=== PATIENT | male | born 1965 | race Hispanic/Latino ===

== ENCOUNTER 2017-11-09 02:44 | Emergency (ER) | payer SELFPAY ==
[2017-11-09] MEDS ORDERED: LIDOCAINE 2%-EPI 1:200,000 20 ML VIAL IJ ONE (02:47)
[2017-11-09] MEDS ORDERED: LIDOCAINE HCL 2% 20ML ONE (02:50)
== END 2017-11-09 04:18 | disposition home or self-care (01) ==
LOC: EDH 02:44
DX: T16.1XXA Foreign body in right ear, initial encounter (principal); I10 Essential (primary) hypertension; E78.5 Hyperlipidemia, unspecified; X58.XXXA Exposure to other specified factors, initial encounter; Y93.89 Activity, other specified; Y92.89 Other specified places as the place of occurrence of the external cause; Y99.8 Other external cause status
CPT/HCPCS: 69200; 99284; J3490 ×2

== ENCOUNTER 2018-09-02 16:56 | Inpatient (IN) | payer OTHER ==
[~2018-09-02] VITALS: Ht 157.5 cm; Wt 108.4 kg
[2018-09-02 17:29] LABS: BASOPHILS % (AUTO) 0.3 % (0.0-5.0); HEMATOCRIT 46.3 % (42-54); LYMPHOCYTES % (AUTO) 2.1 % (21.0-51.0); MEAN CORPUSCULAR HGB CONC 32.8 g/dL (32.0-36.0); MEAN CORPUSCULAR VOLUME 82.2 fL (79-99); MONOCYTES % (AUTO) 5.7 % (3.0-13.0); NEUTROPHILS % (AUTO) 91.9 % (40.0-77.0); NUCLEATED RED BLOOD CELLS 0.1 % (0.0-0.19); PLATELET COUNT (AUTO) 283 K/uL (130-400); RED BLOOD CELL COUNT(AUTO) 5.62 MIL/uL (4.50-6.20); RED CELL DISTRIBUTION WIDTH 20.1 % (11.0-15.5); WHITE BLOOD COUNT (AUTO) 22.5 K/uL (4.8-10.8)
[2018-09-02 17:46] LABS: INR 1.23 (0.85-1.15); PARTIAL THROMBOPLASTIN TIME 42.5 SEC (26.3-35.5); PROTHROMBIN TIME 12.9 SEC (9.6-11.6)
[2018-09-02 17:47] LABS: POTASSIUM 3.6 mmol/L (3.5-5.1)
[2018-09-02] MEDS ORDERED: CEFTRIAXONE SODIUM 1 GM ONE (17:55)
[2018-09-02] MEDS ORDERED: SODIUM CHLORIDE 0.9% 1000ML 2,000 ML IV ONE (17:55)
[2018-09-02] MEDS ORDERED: SODIUM CHLORIDE 0.9% 50 ML IV ONE (17:56)
[2018-09-02] MEDS ORDERED: ACETAMINOPHEN 325 MG TAB ONE (17:56)
[2018-09-02 18:06] LABS: ALBUMIN 2.9 g/dL (3.5-5.0); BILIRUBIN,TOTAL 6.4 mg/dL (0.2-1.0); TROPONIN I 0.14 ng/mL (0.00-0.06)
[2018-09-02] MEDS ORDERED: IPRATROPIUM/ALBUTEROL SULFATE 3 ML SOLUTION IH ONE (18:49)
[2018-09-02] MEDS ORDERED: SODIUM CHLORIDE 0.9% 1000ML 1,000 ML IV ONE (19:17)
[2018-09-02] MEDS ORDERED: VANCOMYCIN PROTOCOL PER PHARMACY IV SCH (20:00)
[2018-09-02] MEDS ORDERED: VANCOMYCIN 1GM+NS 250ML 250 ML IV SCH (20:00)
[2018-09-02 20:32] LABS: APPEARANCE,URINE Cloudy (CLEAR); BILIRUBIN,URINE Large (NEGATIVE); COLOR,URINE Orange (YELLOW); GLUCOSE, URINE (UA) Negative (NEGATIVE); KETONES,URINE Negative (NEGATIVE); LEUKOCYTE ESTERASE ,URINE Small (NEGATIVE); NITRATE,URINE Positive (NEGATIVE); OCCULT BLOOD,URINE Moderate (NEGATIVE); PROTEIN,URINE POS 2+ (NEGATIVE)
[2018-09-02 20:39] LABS: BACTERIA,URINE Moderate /HPF (None Seen); SQUAMOUS EPITHELIAL CELL,UR Moderate /HPF (0-2)
[2018-09-02 20:40] LABS: AMORPHOUS SEDIMENT,UR Few /LPF (None Seen)
[2018-09-02 20:41] LABS: COARSE GRANULAR CASTS,URINE 0-2 /LPF (None Seen)
[2018-09-02] MEDS: ZOSYN 3.375GM+NS 50ML 50 ML IV SCH (21:00)
[2018-09-02] MEDS ORDERED: SODIUM CHLORIDE 0.9% 500ML 500 ML IV ONE (22:43)
[2018-09-02] MEDS ORDERED: ZOSYN 3.375GM+NS 50ML 50 ML IV ONE (22:43)
[2018-09-03] MEDS ORDERED: SODIUM CHLORIDE 0.9% 1000ML 1,000 ML IV ONE (01:05)
[2018-09-03] MEDS ORDERED: VANCOMYCIN 1GM+NS 250ML 250 ML IV ONE (01:06)
[2018-09-03 01:43] LABS: TROPONIN I 0.15 ng/mL (0.00-0.06)
[2018-09-03] MEDS: ZOSYN 3.375GM+NS 50ML 50 ML IV SCH ×3 (05:00→20:53)
[2018-09-03 06:00] LABS: CREATININE 2.1 mg/dL (0.5-1.5); MAGNESIUM 1.6 mg/dL (1.80-2.40); POTASSIUM 3.9 mmol/L (3.5-5.1)
[2018-09-03 06:01] LABS: BASOPHILS % (AUTO) 0.2 % (0.0-5.0); LYMPHOCYTES % (AUTO) 5.1 % (21.0-51.0); MEAN CORPUSCULAR HEMOGLOBIN 26.5 pg (27.0-33.0); MEAN CORPUSCULAR HGB CONC 31.9 g/dL (32.0-36.0); MONOCYTES % (AUTO) 6.4 % (3.0-13.0); NEUTROPHILS % (AUTO) 88.3 % (40.0-77.0); NUCLEATED RED BLOOD CELLS 0.1 % (0.0-0.19); PLATELET COUNT (AUTO) 188 K/uL (130-400); RED BLOOD CELL COUNT(AUTO) 5.18 MIL/uL (4.50-6.20); RED CELL DISTRIBUTION WIDTH 20.1 % (11.0-15.5); WHITE BLOOD COUNT (AUTO) 15.7 K/uL (4.8-10.8)
[2018-09-03] MEDS ORDERED: SODIUM CHLORIDE 0.9% 50 ML IV ONE (06:57)
[2018-09-03] MEDS ORDERED: ZOSYN 3.375GM+NS 50ML 50 ML IV ONE (06:57)
[2018-09-03] MEDS ORDERED: IPRATROPIUM/ALBUTEROL SULFATE 3 ML SOLUTION IH ONE (07:02)
[2018-09-03] MEDS: IPRATROPIUM/ALBUTEROL SULFATE 3 ML SOLUTION IH PRN ×2 (07:03→13:29)
[2018-09-03 07:18] LABS: TROPONIN I 0.12 ng/mL (0.00-0.06)
[2018-09-03] MEDS ORDERED: HYDR25TA PO (07:59)
[2018-09-03] MEDS ORDERED: ENAL20TA PO (07:59)
[2018-09-03] MEDS ORDERED: ASPI-555 PO (07:59)
[2018-09-03 13:19] VITALS: BP 101/57
[2018-09-03] MEDS ORDERED: COMPOUND IV REFRIGERATED 1 EACH IVSOLN MISC PRN (14:00)
[2018-09-03] MEDS ORDERED: VANCOMYCIN 1.5 GM in SODIUM CHLORIDE 0.9% 250 ML IV SCH (14:00)
[2018-09-03] MEDS: LEVOFLOXACIN 750 MG/D5W 150 ML 150 ML IV SCH (15:22)
[2018-09-03 16:56] VITALS: BP 107/76
[2018-09-03 19:44] VITALS: BP 102/73
[2018-09-03] MEDS: SODIUM CHLORIDE 0.9% 1000ML 1,000 ML IV SCH (20:53)
[2018-09-03 23:55] VITALS: BP 110/70
[2018-09-04 04:03] VITALS: BP 123/83
[2018-09-04] MEDS: ZOSYN 3.375GM+NS 50ML 50 ML IV SCH ×3 (04:21→20:17)
[2018-09-04 04:22] LABS: BASOPHILS % (AUTO) 0.3 % (0.0-5.0); EOSINOPHILS % (AUTO) 0.4 % (0.0-8.0); HEMATOCRIT 39.6 % (42-54); LYMPHOCYTES % (AUTO) 5.8 % (21.0-51.0); MEAN CORPUSCULAR HEMOGLOBIN 27.5 pg (27.0-33.0); MEAN CORPUSCULAR HGB CONC 33.5 g/dL (32.0-36.0); MEAN CORPUSCULAR VOLUME 82.2 fL (79-99); MONOCYTES % (AUTO) 6.9 % (3.0-13.0); NEUTROPHILS % (AUTO) 86.6 % (40.0-77.0); PLATELET COUNT (AUTO) 196 K/uL (130-400); RED BLOOD CELL COUNT(AUTO) 4.81 MIL/uL (4.50-6.20); RED CELL DISTRIBUTION WIDTH 19.2 % (11.0-15.5); WHITE BLOOD COUNT (AUTO) 10.5 K/uL (4.8-10.8)
[2018-09-04 04:24] LABS: ALBUMIN 2.3 g/dL (3.5-5.0); BILIRUBIN,TOTAL 3.5 mg/dL (0.2-1.0); CREATININE 2.4 mg/dL (0.5-1.5); MAGNESIUM 1.7 mg/dL (1.80-2.40); PHOSPHORUS 3.9 mg/dL (2.5-4.9); POTASSIUM 3.5 mmol/L (3.5-5.1); TOTAL PROTEIN, SERUM 6.9 g/dL (6.0-8.3)
[2018-09-04 04:43] LABS: INR 1.18 (0.85-1.15); PARTIAL THROMBOPLASTIN TIME 43.3 SEC (26.3-35.5); PROTHROMBIN TIME 12.3 SEC (9.6-11.6)
[2018-09-04 07:34] VITALS: BP 93/74
[2018-09-04 07:38] LABS: ABG BASE EXCESS -3.3 mmol/L (-2.0-3.0); ABG HCO3 19.9 mmol/L (21.0-28.0); ABG OXYGEN SATURATION 95.5 % (95.0-99.0); ABG PCO2 31 mmHg (35-48)
[2018-09-04] MEDS: SODIUM CHLORIDE 0.9% 1000ML 1,000 ML IV SCH ×2 (09:16→12:00)
[2018-09-04 12:17] VITALS: BP 99/74
[2018-09-04 16:27] VITALS: BP 108/83
[2018-09-04] MEDS ORDERED: POTASSIUM CHLORIDE 10% ELIXIR 20 MEQ/15 ML UDCUP PO PRN (19:15)
[2018-09-04 19:55] VITALS: BP 134/72
[2018-09-04] MEDS: IPRATROPIUM/ALBUTEROL SULFATE 3 ML SOLUTION IH PRN (22:34)
[2018-09-04 23:41] VITALS: BP 116/81
[2018-09-05] MEDS: SODIUM CHLORIDE 0.9% 1000ML 1,000 ML IV SCH ×3 (01:20→13:50)
[2018-09-05 04:00] VITALS: BP 138/73
[2018-09-05] MEDS: POTASSIUM CHLORIDE 20 MEQ ERTAB PO PRN ×2 (04:41→06:29)
[2018-09-05] MEDS: ZOSYN 3.375GM+NS 50ML 50 ML IV SCH ×4 (04:42→20:18)
[2018-09-05] MEDS ORDERED: SODIUM CHLORIDE 3% FOR INHALATION 4 ML/AMP VIAL.NEB IH ONE (05:52)
[2018-09-05 07:36] VITALS: BP 105/98
[2018-09-05 11:36] VITALS: BP 108/79
[2018-09-05] MEDS: LEVOFLOXACIN 750 MG/D5W 150 ML 150 ML IV SCH (13:14)
[2018-09-05 16:31] VITALS: BP 109/79
[2018-09-05] MEDS: IPRATROPIUM/ALBUTEROL SULFATE 3 ML SOLUTION IH PRN (19:16)
[2018-09-05 19:36] VITALS: BP 97/67
[2018-09-05 23:49] VITALS: BP 120/85
[2018-09-06] VITALS (7 sets, daily range): BP systolic 96–128; BP diastolic 70–77
[2018-09-06] MEDS: SODIUM CHLORIDE 0.9% 1000ML 1,000 ML IV SCH (04:00)
[2018-09-06] MEDS: ZOSYN 3.375GM+NS 50ML 50 ML IV SCH ×3 (05:24→21:00)
[2018-09-06 06:21] LABS: HEMATOCRIT 41.6 % (42-54); MEAN CORPUSCULAR HEMOGLOBIN 27.4 pg (27.0-33.0); MEAN CORPUSCULAR HGB CONC 32.7 g/dL (32.0-36.0); MEAN CORPUSCULAR VOLUME 83.7 fL (79-99); PLATELET COUNT (AUTO) 205 K/uL (130-400); RED BLOOD CELL COUNT(AUTO) 4.97 MIL/uL (4.50-6.20); RED CELL DISTRIBUTION WIDTH 19.4 % (11.0-15.5); WHITE BLOOD COUNT (AUTO) 8.6 K/uL (4.8-10.8)
[2018-09-06 06:27] LABS: CREATININE 1.6 mg/dL (0.5-1.5); POTASSIUM 3.5 mmol/L (3.5-5.1)
[2018-09-06] MEDS ORDERED: FUROSEMIDE 10 MG/ML 2ML VIAL IV SCH (10:45)
[2018-09-06] MEDS: LISINOPRIL 2.5 MG TABLET PO SCH (21:00)
[2018-09-06] MEDS: CARVEDILOL 3.125 MG TABLET PO SCH (21:00)
[2018-09-07 04:08] LABS: HEMATOCRIT 43.2 % (42-54); MEAN CORPUSCULAR HEMOGLOBIN 26.3 pg (27.0-33.0); MEAN CORPUSCULAR HGB CONC 31.7 g/dL (32.0-36.0); MEAN CORPUSCULAR VOLUME 83.1 fL (79-99); NUCLEATED RED BLOOD CELLS 0.4 % (0.0-0.19); PLATELET COUNT (AUTO) 224 K/uL (130-400); RED CELL DISTRIBUTION WIDTH 19.6 % (11.0-15.5); WHITE BLOOD COUNT (AUTO) 11.7 K/uL (4.8-10.8)
[2018-09-07 04:16] LABS: HEMOGLOBIN A1C 6.9 % (4.0-6.0)
[2018-09-07 04:19] VITALS: BP 110/73
[2018-09-07 04:20] LABS: ALBUMIN 2.4 g/dL (3.5-5.0); BILIRUBIN,TOTAL 2.4 mg/dL (0.2-1.0); CREATININE 1.5 mg/dL (0.5-1.5); MAGNESIUM 1.7 mg/dL (1.80-2.40); PHOSPHORUS 2.8 mg/dL (2.5-4.9); POTASSIUM 3.6 mmol/L (3.5-5.1); TOTAL PROTEIN, SERUM 7.5 g/dL (6.0-8.3); URIC ACID 4.8 mg/dL (2.6-7.2)
[2018-09-07] MEDS: ZOSYN 3.375GM+NS 50ML 50 ML IV SCH (05:32)
[2018-09-07] MEDS ORDERED: FAMOTIDINE 20MG TAB 20 MG TAB ONE (07:05)
[2018-09-07] MEDS: FOLIC ACID/VITAMIN B COMP W-C 1 MG CAPSULE PO SCH (07:06)
[2018-09-07] MEDS: ASPIRIN 81 MG EC TAB PO SCH (07:06)
[2018-09-07] MEDS: CARVEDILOL 3.125 MG TABLET PO SCH ×2 (07:07→20:59)
[2018-09-07 07:11] LABS: APPEARANCE,URINE Clear (CLEAR); BILIRUBIN,URINE Small (NEGATIVE); COLOR,URINE Dark Yellow (YELLOW); GLUCOSE, URINE (UA) Negative (NEGATIVE); KETONES,URINE Negative (NEGATIVE); LEUKOCYTE ESTERASE ,URINE Small (NEGATIVE); NITRATE,URINE Negative (NEGATIVE); OCCULT BLOOD,URINE Negative (NEGATIVE); PROTEIN,URINE POS 1+ (NEGATIVE)
[2018-09-07 07:50] VITALS: BP 97/73
[2018-09-07 07:59] LABS: BACTERIA,URINE Rare /HPF (None Seen); RBC,URINE 0-1 /HPF (0-1); SQUAMOUS EPITHELIAL CELL,UR Rare /HPF (0-2); WBC,URINE 0-1 /HPF (0-1)
[2018-09-07] MEDS ORDERED: FUROSEMIDE 20 MG TABLET PO SCH (09:00)
[2018-09-07] MEDS ORDERED: CEFTRIAXONE SODIUM 2 GM VIAL IVP SCH ×2 (10:00→12:15)
[2018-09-07] MEDS: REGADENOSON 0.4 MG/5 ML PF SYG IVP SCH ×2 (11:30→12:38)
[2018-09-07] MEDS: LEVOFLOXACIN 750 MG/D5W 150 ML 150 ML IV SCH (14:05)
[2018-09-07] MEDS: MAGNESIUM 2GM PREMIX 50ML 50 ML IV SCH (14:06)
[2018-09-07 14:19] VITALS: BP 103/71
[2018-09-07 16:00] VITALS: BP 92/53
[2018-09-07 19:46] VITALS: BP 96/44
[2018-09-07] MEDS: POTASSIUM CHLORIDE 20 MEQ ERTAB PO PRN (21:00)
[2018-09-07] MEDS: LISINOPRIL 2.5 MG TABLET PO SCH (23:28)
[2018-09-08] VITALS (7 sets, daily range): BP systolic 94–127; BP diastolic 59–76
[2018-09-08 03:53] LABS: HEMATOCRIT 40.9 % (42-54); MEAN CORPUSCULAR HEMOGLOBIN 26.9 pg (27.0-33.0); MEAN CORPUSCULAR HGB CONC 32.8 g/dL (32.0-36.0); MEAN CORPUSCULAR VOLUME 82.1 fL (79-99); NUCLEATED RED BLOOD CELLS 0.4 % (0.0-0.19); PLATELET COUNT (AUTO) 265 K/uL (130-400); RED BLOOD CELL COUNT(AUTO) 4.98 MIL/uL (4.50-6.20); RED CELL DISTRIBUTION WIDTH 19.6 % (11.0-15.5); WHITE BLOOD COUNT (AUTO) 11.5 K/uL (4.8-10.8)
[2018-09-08 04:07] LABS: CREATININE 1.3 mg/dL (0.5-1.5); MAGNESIUM 1.7 mg/dL (1.80-2.40)
[2018-09-08] MEDS: MAGNESIUM 2GM PREMIX 50ML 50 ML IV SCH ×2 (05:30→14:16)
[2018-09-08] MEDS ORDERED: MAGNESIUM 2GM PREMIX 50ML 50 ML IV SCH (06:45)
[2018-09-08] MEDS: ASPIRIN 81 MG EC TAB PO SCH (11:07)
[2018-09-08] MEDS: FOLIC ACID/VITAMIN B COMP W-C 1 MG CAPSULE PO SCH (11:08)
[2018-09-08] MEDS: CARVEDILOL 3.125 MG TABLET PO SCH ×2 (11:08→20:20)
[2018-09-08] MEDS: ISOSORBIDE MONO 30MG TAB SR PO SCH (11:09)
[2018-09-08] MEDS: FUROSEMIDE 10 MG/ML 4ML VIAL IV SCH (11:09)
[2018-09-08] MEDS ORDERED: CEFTRIAXONE SODIUM 2 GM VIAL IVP SCH (14:45)
[2018-09-08] MEDS: LISINOPRIL 2.5 MG TABLET PO SCH (20:21)
[2018-09-08] MEDS ORDERED: ATORVASTATIN CALCIUM 20 MG TABLET PO SCH (21:00)
[2018-09-09] VITALS (7 sets, daily range): BP systolic 81–101; BP diastolic 34–66
[2018-09-09 03:44] LABS: BASOPHILS % (AUTO) 0.8 % (0.0-5.0); EOSINOPHILS % (AUTO) 2.5 % (0.0-8.0); HEMATOCRIT 37.8 % (42-54); LYMPHOCYTES % (AUTO) 10.5 % (21.0-51.0); MEAN CORPUSCULAR HEMOGLOBIN 27.3 pg (27.0-33.0); MEAN CORPUSCULAR HGB CONC 32.8 g/dL (32.0-36.0); MEAN CORPUSCULAR VOLUME 83.4 fL (79-99); MONOCYTES % (AUTO) 13.3 % (3.0-13.0); NEUTROPHILS % (AUTO) 72.9 % (40.0-77.0); NUCLEATED RED BLOOD CELLS 0.2 % (0.0-0.19); PLATELET COUNT (AUTO) 272 K/uL (130-400); RED BLOOD CELL COUNT(AUTO) 4.53 MIL/uL (4.50-6.20); RED CELL DISTRIBUTION WIDTH 20.5 % (11.0-15.5); WHITE BLOOD COUNT (AUTO) 8.9 K/uL (4.8-10.8)
[2018-09-09 04:01] LABS: B-TYPE NATRIURETIC PEPTIDE 704 pg/mL (0-100)
[2018-09-09 04:04] LABS: CREATININE 1.6 mg/dL (0.5-1.5); POTASSIUM 3.6 mmol/L (3.5-5.1)
[2018-09-09] MEDS: POTASSIUM CHLORIDE 20 MEQ ERTAB PO PRN ×2 (04:44→06:22)
[2018-09-09] MEDS: CARVEDILOL 3.125 MG TABLET PO SCH ×2 (08:30→21:26)
[2018-09-09] MEDS: FOLIC ACID/VITAMIN B COMP W-C 1 MG CAPSULE PO SCH (08:30)
[2018-09-09] MEDS: ASPIRIN 81 MG EC TAB PO SCH (08:30)
[2018-09-09] MEDS: FUROSEMIDE 40 MG TABLET PO SCH (08:30)
[2018-09-09] MEDS: ISOSORBIDE MONO 30MG TAB SR PO SCH (08:30)
[2018-09-09] MEDS: FUROSEMIDE 10 MG/ML 4ML VIAL IV SCH (08:31)
[2018-09-09] MEDS ORDERED: CARV3.1262 PO (09:16)
[2018-09-09] MEDS ORDERED: Isosorbide Mono 30MG Tab Sr PO (09:16)
[2018-09-09] MEDS ORDERED: LISI2.5T2 PO (09:16)
[2018-09-09] MEDS ORDERED: FURO40TA7 PO (09:16)
[2018-09-09 12:22] LABS: INR 1.15 (0.85-1.15); PARTIAL THROMBOPLASTIN TIME 35.2 SEC (26.3-35.5)
[2018-09-09] MEDS: LEVOFLOXACIN 750 MG/D5W 150 ML 150 ML IV SCH (14:00)
[2018-09-09] MEDS ORDERED: LEVOFLOXACIN 750 MG TABLET PO SCH (15:37)
[2018-09-09 18:19] LABS: APPEARANCE BODY FLUID SLIGHTLY CLOUDY (CLEAR); COLOR,BODY FLUID ORANGE (LT YELLOW); SPECIMENTYPE,BODY FLUID THORACENTESIS; TOTAL VOLUME,BODY FLUID 740 mL
[2018-09-09 18:20] LABS: BODY FLUID RBC 6543 /cu. mm.; BODY FLUID WBC 882 /cu. mm.
[2018-09-09 18:29] LABS: BF LYMPHOCYTE 23 %; BF MONOCYTE 14 %
[2018-09-09] MEDS: LISINOPRIL 2.5 MG TABLET PO SCH (21:25)
[2018-09-10 03:00] VITALS: BP 112/71
[2018-09-10 08:01] VITALS: BP 123/92
[2018-09-10] MEDS: ASPIRIN 81 MG EC TAB PO SCH (09:09)
[2018-09-10] MEDS: ISOSORBIDE MONO 30MG TAB SR PO SCH (09:09)
[2018-09-10] MEDS: POTASSIUM CHLORIDE 20 MEQ ERTAB PO PRN (09:09)
[2018-09-10] MEDS: FOLIC ACID/VITAMIN B COMP W-C 1 MG CAPSULE PO SCH (09:09)
[2018-09-10] MEDS: CARVEDILOL 3.125 MG TABLET PO SCH (09:10)
[2018-09-10] MEDS: FUROSEMIDE 40 MG TABLET PO SCH (09:10)
[2018-09-10] MEDS: FUROSEMIDE 10 MG/ML 4ML VIAL IV SCH (09:30)
[2018-09-10 11:08] VITALS: BP 142/90
[2018-09-10] MEDS ORDERED: LEVO750T46 PO (13:32)
== END 2018-09-10 14:30 | disposition home or self-care (01) | DRG 871 ==
LOC: EDH 16:56 → EDHIP 16:57 → 4CH 09-03 12:37 → 2AH 09-03 19:05
PROVIDERS: ADMIT Family Medicine; ATTEND Family Medicine
PROC: 3E02340 Introduction of Influenza Vaccine into Muscle, Percutaneous Approach (ICD-10-PCS; 2018-09-03)
PROC: 0W9930Z Drainage of Right Pleural Cavity with Drainage Device, Percutaneous Approach (ICD-10-PCS; principal; 2018-09-09)
DX: A40.8 Other streptococcal sepsis (principal); J18.9 Pneumonia, unspecified organism; I21.4 Non-ST elevation (NSTEMI) myocardial infarction; I50.23 Acute on chronic systolic (congestive) heart failure; J96.01 Acute respiratory failure with hypoxia; J44.0 Chronic obstructive pulmonary disease with (acute) lower respiratory infection; N17.9 Acute kidney failure, unspecified; I13.0 Hypertensive heart and chronic kidney disease with heart failure and stage 1 through stage 4 chronic kidney disease, or unspecified chronic kidney disease; Z68.41 Body mass index [BMI] 40.0-44.9, adult; J90 Pleural effusion, not elsewhere classified; R65.20 Severe sepsis without septic shock; D64.9 Anemia, unspecified; E11.22 Type 2 diabetes mellitus with diabetic chronic kidney disease; E66.01 Morbid (severe) obesity due to excess calories; E78.5 Hyperlipidemia, unspecified; G47.33 Obstructive sleep apnea (adult) (pediatric); I25.10 Atherosclerotic heart disease of native coronary artery without angina pectoris; I25.5 Ischemic cardiomyopathy; I34.0 Nonrheumatic mitral (valve) insufficiency; I35.0 Nonrheumatic aortic (valve) stenosis; K74.60 Unspecified cirrhosis of liver; N18.3 Chronic kidney disease, stage 3 (moderate); I25.2 Old myocardial infarction; Z78.9 Other specified health status; Z79.82 Long term (current) use of aspirin; Z79.899 Other long term (current) drug therapy; Z87.01 Personal history of pneumonia (recurrent); Z87.442 Personal history of urinary calculi; Z83.3 Family history of diabetes mellitus; Z82.49 Family history of ischemic heart disease and other diseases of the circulatory system; Z80.9 Family history of malignant neoplasm, unspecified
CPT/HCPCS: 32555; 36415; 36600; 71045; 71046; 71250; 76770; 78452; 80048; 80053; 80061; 80339; 81001; 82140; 82550; 82803; 82945; 83036; 83605; 83615; 83735; 83874; 83880; 83970; 83986; 84100; 84157; 84484; 84550; 85025; 85027; 85610; 85730; 86480; 87040; 87071; 87077; 87088; 87103; 87116; 87186; 87205; 87206; 87804; 88108; 88305; 89051; 93005; 93017; 93306; 94640; 94664; 96374; A4218; A9500; G0378; J0696; J1940; J1956; J2543; J2785; J3370; J3475; J7030; J7040

== ENCOUNTER 2018-09-23 18:45 | Emergency (ER) | payer SELFPAY ==
[~2018-09-23 18:45] MED LIST: ASPI-555 PO; CARV3.1262 PO; FURO40TA7 PO; Isosorbide Mono 30MG Tab Sr PO; LEVO750T46 PO; LISI2.5T2 PO
[2018-09-23 21:13] LABS: BASOPHILS % (AUTO) 1.1 % (0.0-5.0); EOSINOPHILS % (AUTO) 3.3 % (0.0-8.0); HEMATOCRIT 39.9 % (42-54); LYMPHOCYTES % (AUTO) 9.9 % (21.0-51.0); MEAN CORPUSCULAR HEMOGLOBIN 27.8 pg (27.0-33.0); MEAN CORPUSCULAR HGB CONC 33.4 g/dL (32.0-36.0); MEAN CORPUSCULAR VOLUME 83.1 fL (79-99); MONOCYTES % (AUTO) 8.6 % (3.0-13.0); NEUTROPHILS % (AUTO) 77.1 % (40.0-77.0); NUCLEATED RED BLOOD CELLS 0.2 % (0.0-0.19); PLATELET COUNT (AUTO) 350 K/uL (130-400); RED CELL DISTRIBUTION WIDTH 20.4 % (11.0-15.5); WHITE BLOOD COUNT (AUTO) 8.8 K/uL (4.8-10.8)
[2018-09-23 21:47] LABS: CREATININE 1.2 mg/dL (0.5-1.5); POTASSIUM 3.6 mmol/L (3.5-5.1)
[2018-09-23 21:50] LABS: ALBUMIN 2.4 g/dL (3.5-5.0); BILIRUBIN,TOTAL 1.6 mg/dL (0.2-1.0); TOTAL PROTEIN, SERUM 7.6 g/dL (6.0-8.3)
[2018-09-23 21:55] LABS: INR 1.15 (0.85-1.15); PARTIAL THROMBOPLASTIN TIME 33.2 SEC (26.3-35.5)
[2018-09-23] MEDS ORDERED: LOPERAMIDE HCL 2 MG CAP PO ONE (22:52)
== END 2018-09-23 23:35 | disposition home or self-care (01) ==
LOC: EDH 18:45
DX: K52.9 Noninfective gastroenteritis and colitis, unspecified (principal); K62.5 Hemorrhage of anus and rectum; K74.60 Unspecified cirrhosis of liver; E78.5 Hyperlipidemia, unspecified; I11.0 Hypertensive heart disease with heart failure; I50.9 Heart failure, unspecified
CPT/HCPCS: 36415; 80053; 82270; 85025; 85610; 85730

== ENCOUNTER 2019-07-03 18:30 | Emergency (ER) | payer OTHER, SELFPAY ==
[2019-07-03 19:05] LABS: BASOPHILS % (AUTO) 0.5 % (0.0-5.0); EOSINOPHILS % (AUTO) 1.1 % (0.0-8.0); HEMATOCRIT 42.2 % (42-54); LYMPHOCYTES % (AUTO) 5.3 % (21.0-51.0); MEAN CORPUSCULAR HEMOGLOBIN 27.8 pg (27.0-33.0); MEAN CORPUSCULAR HGB CONC 32.8 g/dL (32.0-36.0); MEAN CORPUSCULAR VOLUME 84.9 fL (79-99); MONOCYTES % (AUTO) 9.3 % (3.0-13.0); NEUTROPHILS % (AUTO) 83.8 % (40.0-77.0); NUCLEATED RED BLOOD CELLS 0.1 % (0.0-0.19); PLATELET COUNT (AUTO) 278 K/uL (130-400); RED BLOOD CELL COUNT(AUTO) 4.97 MIL/uL (4.50-6.20); RED CELL DISTRIBUTION WIDTH 18.9 % (11.0-15.5); WHITE BLOOD COUNT (AUTO) 7.5 K/uL (4.8-10.8)
[2019-07-03 19:27] LABS: CREATININE 1.2 mg/dL (0.5-1.5); POTASSIUM 3.8 mmol/L (3.5-5.1)
[2019-07-03 19:33] LABS: BILIRUBIN,TOTAL 1.1 mg/dL (0.2-1.0); TOTAL PROTEIN, SERUM 8.2 g/dL (6.0-8.3)
[2019-07-03] MEDS ORDERED: IOHEXOL-350 75 ML VIAL IV ONE (20:08)
[2019-07-03 21:18] LABS: APPEARANCE,URINE Clear (CLEAR); BILIRUBIN,URINE Negative (NEGATIVE); COLOR,URINE Dark Yellow (YELLOW); GLUCOSE, URINE (UA) Negative (NEGATIVE); KETONES,URINE Negative (NEGATIVE); LEUKOCYTE ESTERASE ,URINE Small (NEGATIVE); NITRATE,URINE Negative (NEGATIVE); OCCULT BLOOD,URINE Negative (NEGATIVE); PROTEIN,URINE POS 1+ mg/dL (NEGATIVE)
[2019-07-03 22:02] LABS: RBC,URINE 0-1 /HPF (0-1)
[2019-07-03 22:03] LABS: BACTERIA,URINE Moderate /HPF (None Seen); SQUAMOUS EPITHELIAL CELL,UR Few /HPF (0-2); TRANSITIONAL EPI CELLS,URINE Rare /HPF (None Seen)
[2019-07-03 22:05] LABS: HYALINE CASTS, URINE 0-1 /LPF (0-1 /LPF); MUCUS,URINE Rare LPF (None Seen)
== END 2019-07-03 21:54 | disposition home or self-care (01) ==
LOC: EDH 18:30
DX: R10.30 Lower abdominal pain, unspecified (principal); I88.0 Nonspecific mesenteric lymphadenitis; I11.0 Hypertensive heart disease with heart failure; I50.9 Heart failure, unspecified; E11.9 Type 2 diabetes mellitus without complications; Z87.891 Personal history of nicotine dependence
CPT/HCPCS: 36415; 74177; 80053; 81001; 83690; 85025; 99285; Q9967

== ENCOUNTER 2019-08-10 16:38 | Inpatient (IN) | payer OTHER, SELFPAY ==
[~2019-08-10] VITALS: Ht 165.1 cm; Wt 90.2 kg
[2019-08-10] MEDS ORDERED: SODIUM CHLORIDE 0.9% 1000ML 1,000 ML IV ONE (17:01)
[2019-08-10 17:17] LABS: BASOPHILS % (AUTO) 0.4 % (0.0-5.0); EOSINOPHILS % (AUTO) 0.6 % (0.0-8.0); HEMATOCRIT 34.2 % (42-54); LYMPHOCYTES % (AUTO) 4.5 % (21.0-51.0); MEAN CORPUSCULAR HGB CONC 33.2 g/dL (32.0-36.0); MEAN CORPUSCULAR VOLUME 84.5 fL (79-99); MONOCYTES % (AUTO) 10.3 % (3.0-13.0); NEUTROPHILS % (AUTO) 84.2 % (40.0-77.0); NUCLEATED RED BLOOD CELLS 0.1 % (0.0-0.19); PLATELET COUNT (AUTO) 326 K/uL (130-400); RED BLOOD CELL COUNT(AUTO) 4.05 MIL/uL (4.50-6.20); RED CELL DISTRIBUTION WIDTH 17.9 % (11.0-15.5); WHITE BLOOD COUNT (AUTO) 7.4 K/uL (4.8-10.8)
[2019-08-10 17:48] LABS: INR 1.18 (0.85-1.15); PARTIAL THROMBOPLASTIN TIME 29.9 SEC (26.3-35.5); PROTHROMBIN TIME 12.1 SEC (9.6-11.6)
[2019-08-10 17:55] LABS: ALBUMIN 2.4 g/dL (3.5-5.0); BILIRUBIN,TOTAL 0.8 mg/dL (0.2-1.0); CREATININE 1.5 mg/dL (0.5-1.5); POTASSIUM 4.2 mmol/L (3.5-5.1); TOTAL PROTEIN, SERUM 7.2 g/dL (6.0-8.3)
[2019-08-10 18:44] LABS: B-TYPE NATRIURETIC PEPTIDE 2420 pg/mL (0-100)
[2019-08-10] MEDS ORDERED: FUROSEMIDE 10 MG/ML 4ML VIAL ONE (20:39)
[2019-08-10] MEDS ORDERED: SODIUM CHLORIDE 0.9% 10 ML VIAL IVP PRN (21:00)
[2019-08-10 23:14] VITALS: BP 97/67
[2019-08-10] MEDS ORDERED: BUME1TAB6 PO (23:51)
[2019-08-11 01:06] LABS: CREATINE KINASE, TOTAL 32 U/L (21-232); MYOGLOBIN 40 ng/mL (10-92); TROPONIN I < 0.04 ng/mL (0.00-0.06)
[2019-08-11 03:32] VITALS: BP 89/61
[2019-08-11 04:01] LABS: HEMATOCRIT 31.8 % (42-54); MEAN CORPUSCULAR HEMOGLOBIN 27.7 pg (27.0-33.0); MEAN CORPUSCULAR HGB CONC 32.9 g/dL (32.0-36.0); MEAN CORPUSCULAR VOLUME 84.2 fL (79-99); NUCLEATED RED BLOOD CELLS 0.1 % (0.0-0.19); PLATELET COUNT (AUTO) 299 K/uL (130-400); RED BLOOD CELL COUNT(AUTO) 3.78 MIL/uL (4.50-6.20); RED CELL DISTRIBUTION WIDTH 17.8 % (11.0-15.5); WHITE BLOOD COUNT (AUTO) 6.7 K/uL (4.8-10.8)
[2019-08-11 04:44] LABS: ALBUMIN 2.2 g/dL (3.5-5.0); BILIRUBIN,TOTAL 0.8 mg/dL (0.2-1.0); CREATININE 1.5 mg/dL (0.5-1.5); TOTAL PROTEIN, SERUM 6.6 g/dL (6.0-8.3)
[2019-08-11] MEDS ORDERED: FUROSEMIDE 10 MG/ML 4ML VIAL IVP SCH (06:00)
[2019-08-11 07:51] VITALS: BP 90/65
--- NOTE | 2019-08-11 08:45 | NUR ---
AM ASSESSMENT PT SITTING IN CHAIR, WATCHING TV. A/O X 3. FORGETFUL @ TIMES. NO SOB. NO DISTRESS NOTED. DENIES CHEST PAIN OR DISCOMFORT. DENIES PALPITATIONS. TELE: SR. DENIES N/V AND/OR DIARRHEA. ABDOMEN ROUND, NON-TENDER, HX OF PARACENTESIS. UP AD LEN. INSTRUCTED TO CALL FOR ASSISTANCE. CALL CECILE W/IN REACH.
[2019-08-11] MEDS: FAMOTIDINE/PF 20 MG/2 ML VIAL IV SCH (09:44)
[2019-08-11 11:48] VITALS: BP 95/62
--- NOTE | 2019-08-11 13:52 | NUR ---
MD NOTIFICATION DR GARDNER NOTIFIED PT IN HOSPITAL & CURRENTLY BEING SEEN BY DR ARMENDARIZ. PER DR GARDNER, DR ARMENDARIZ MAY CONTINUE PRIMARY MD FOR THIS ADMISSION.
--- NOTE | 2019-08-11 14:10 | NUR ---
GI CONSULT DR VORA'S OFFICE NOTIFIED OF GI CONSULT. SPOKE W/CHAPO @ DR VORA'S OFFICE.
--- NOTE | 2019-08-11 15:00 | NUR ---
DC PLAN VISITED WITH PATIENT. PATIENT LIVES WITH BROTHER 2 NEPHEWS 1 NIECE. INDEPENDENT ABLE TO PERFORM ADL'S. PATIENT HAS NO SERVICES OR DME'S. FEELS SAFE TO RETURN HOME.
--- NOTE | 2019-08-11 15:28 | NUR ---
GI CONSULT CALL RECEIVED FROM DR VORA. UPDATED ON PT'S STATUS & PLAN OF CARE. NEW ORDERS RECEIVED & ENTERED. PT UPDATED ON GI CONSULT.
--- NOTE | 2019-08-11 16:17 | NUR ---
DC PLAN VISITED WITH PATIENT. PATIENT LIVES WITH BROTHER 2 NEPHEW AND NIECE. PATIENT INDEPENDENT ABLE TO PERFORM ADL'S. NO SERVICES OR DME'S. FEELS SAFE TO RETURN HOME. Addendum: 08/11/19 at 1619 by SHAYLEE CUENCA RN CM Amended: Links added.
[2019-08-11 16:39] LABS: ALBUMIN 2.4 g/dL (3.5-5.0); BILIRUBIN,DIRECT 0.5 mg/dL (0.0-0.3); BILIRUBIN,TOTAL 0.9 mg/dL (0.2-1.0)
[2019-08-11 16:47] VITALS: BP 87/42
[2019-08-11 19:35] VITALS: BP 92/67
[2019-08-11 23:15] VITALS: BP 89/63
[2019-08-12 03:15] VITALS: BP 93/49
[2019-08-12 03:49] LABS: BASOPHILS % (AUTO) 0.4 % (0.0-5.0); EOSINOPHILS % (AUTO) 1.2 % (0.0-8.0); HEMATOCRIT 33.6 % (42-54); LYMPHOCYTES % (AUTO) 4.6 % (21.0-51.0); MEAN CORPUSCULAR HEMOGLOBIN 28.1 pg (27.0-33.0); MEAN CORPUSCULAR HGB CONC 33.1 g/dL (32.0-36.0); MEAN CORPUSCULAR VOLUME 84.9 fL (79-99); MONOCYTES % (AUTO) 10.5 % (3.0-13.0); NEUTROPHILS % (AUTO) 83.3 % (40.0-77.0); NUCLEATED RED BLOOD CELLS 0.1 % (0.0-0.19); PLATELET COUNT (AUTO) 295 K/uL (130-400); RED BLOOD CELL COUNT(AUTO) 3.96 MIL/uL (4.50-6.20); RED CELL DISTRIBUTION WIDTH 17.8 % (11.0-15.5); WHITE BLOOD COUNT (AUTO) 8.1 K/uL (4.8-10.8)
[2019-08-12 04:24] LABS: ALBUMIN 2.3 g/dL (3.5-5.0); CREATININE 1.5 mg/dL (0.5-1.5); POTASSIUM 3.8 mmol/L (3.5-5.1); TOTAL PROTEIN, SERUM 7.3 g/dL (6.0-8.3)
[2019-08-12 07:48] VITALS: BP 94/59
[2019-08-12] MEDS: FAMOTIDINE/PF 20 MG/2 ML VIAL IV SCH (10:32)
[2019-08-12] MEDS: FUROSEMIDE 10 MG/ML 4ML VIAL IVP SCH (10:32)
[2019-08-12] MEDS ORDERED: IOHEXOL-350 75 ML VIAL IV ONE (10:40)
[2019-08-12 11:35] VITALS: BP 114/88
[2019-08-12 16:29] VITALS: BP 93/62
[2019-08-12 20:36] VITALS: BP 94/60
[2019-08-13] VITALS (13 sets, daily range): BP systolic 93–108; BP diastolic 60–73
[2019-08-13] MEDS: FUROSEMIDE 10 MG/ML 4ML VIAL IVP SCH (07:19)
[2019-08-13] MEDS: FAMOTIDINE/PF 20 MG/2 ML VIAL IV SCH (07:22)
--- NOTE | 2019-08-13 08:00 | NUR ---
ASSESSMENT PT IS AAOX3 DENIES CP DENIES SOB DENIES NV. BREATHING PATTERN IS EVEN AND UNLABORED. RESTING, SITTING UPRIGHT IN CHAIR. NO COMPLAINTS, CALL LIGHT WITHIN REACH. NPO STATUS FOR EGD TODAY. PATIENT AWARE AND AGREES.
--- NOTE | 2019-08-13 13:00 | NUR ---
DOWN TO EGD GI LAB VIA BED WITH GI LAB STAFF
[2019-08-13] MEDS ORDERED: PROPOFOL 10 MG/ML 20ML VIAL IV ONE (13:26)
--- NOTE | 2019-08-13 14:45 | NUR ---
RETURNED FROM GI LAB AAOX3 ARRIVED WITH ORDERS. NEW CONSULTS PLACED WITH DR CARTWRIGHT AND DR COE.
--- NOTE | 2019-08-13 15:15 | NUR ---
MD CONSULTS DR GABRIEL AND DR COE BOTH AWARE OF NEW CONSULT. NO NEW ORDERS RECEIVED.
[2019-08-13] MEDS: PANTOPRAZOLE SODIUM 80 MG in SODIUM CHLORIDE 0.9% 100 ML IV SCH (15:31)
--- NOTE | 2019-08-13 16:50 | NUR ---
STATUS RESTING IN BED NO COMPLAINTS. CALL LIGHT WITHIN REACH.
[2019-08-13] MEDS: FUROSEMIDE 10 MG/ML 4ML VIAL IV SCH (20:52)
[2019-08-14 00:24] VITALS: BP 94/59
[2019-08-14] MEDS: PANTOPRAZOLE SODIUM 80 MG in SODIUM CHLORIDE 0.9% 100 ML IV SCH ×2 (00:26→11:34)
[2019-08-14 04:43] VITALS: BP 95/58
[2019-08-14 07:40] VITALS: BP 91/64
[2019-08-14] MEDS: FUROSEMIDE 10 MG/ML 4ML VIAL IV SCH ×2 (08:59→19:46)
[2019-08-14] MEDS ORDERED: IOHEXOL-350 50ML VIAL IV ONE (12:19)
[2019-08-14 12:35] VITALS: BP 84/58
[2019-08-14 15:00] VITALS: BP 101/61
[2019-08-14 19:15] VITALS: BP 91/54
[2019-08-15] VITALS (7 sets, daily range): BP systolic 90–95; BP diastolic 58–64
[2019-08-15] MEDS ORDERED: SODIUM CHLORIDE 0.9% 100 ML IV ONE (01:22)
[2019-08-15] MEDS: PANTOPRAZOLE SODIUM 80 MG in SODIUM CHLORIDE 0.9% 100 ML IV SCH (01:38)
[2019-08-15 03:50] LABS: HEMATOCRIT 29.4 % (42-54); MEAN CORPUSCULAR HEMOGLOBIN 28.2 pg (27.0-33.0); MEAN CORPUSCULAR HGB CONC 33.6 g/dL (32.0-36.0); PLATELET COUNT (AUTO) 243 K/uL (130-400); WHITE BLOOD COUNT (AUTO) 9.2 K/uL (4.8-10.8)
[2019-08-15 04:07] LABS: CREATININE 1.6 mg/dL (0.5-1.5); POTASSIUM 3.8 mmol/L (3.5-5.1)
[2019-08-15 05:33] LABS: INR 1.15 (0.85-1.15); PARTIAL THROMBOPLASTIN TIME 30.2 SEC (26.3-35.5)
--- NOTE | 2019-08-15 07:30 | NUR ---
ASSESSMENT ENCOUNTERED PT A&OX3, AMBULATING AROUND ROOM, GAIT STEADY AND STRONG WITH STAND BY ASSIST, CALM COOPERATIVE AND DOES NOT APPEAR TO BE IN ANY DISTRESS NOR ANY NEURO DEFICITS PRESENT. PT DENIES PAIN, SOB, NAUSEA. PT IS NPO FOR PENDING HEPATIC BIOPSY BY I.R. , CALL LIGHT WITHIN REACH.
[2019-08-15] MEDS: FUROSEMIDE 10 MG/ML 4ML VIAL IV SCH ×2 (09:00→18:47)
[2019-08-15] MEDS ORDERED: PHARMACY COMMUNICATION MISC SCH (13:30)
--- NOTE | 2019-08-15 13:52 | NUR ---
RD NOTIFICATION RD CONSULTS DUE TO LOS X 5. DIET: CLEAR LIQUIDS; PENDING BIOPSY TODAY. PO INTAKE 100% AND HAS GOOD APPETITE PER PT. PT STATED HE HAS A HX OF CONSTIPATION AND RECENTLY HAVING EPISODES OF DIARRHEA. LBM: 08/14; DIARRHEA NOTED. 2+ PITTING EDEMA, SKIN INTACT. RD RECOMMENDS TO ADVANCE DIET TOLERATED WHEN MEDICALLY FEASIBLE ADD FLUID RESTRICTION TO DIET ORDER (1500ML/D) RD WILL CONTINUE TO MONITOR AND F/U NEEDED, THANK YOU. Addendum: 08/15/19 at [address] Amended: Links added.
[2019-08-15] MEDS ORDERED: COMPOUND IV MISC 1 EACH IVSOLN MISC PRN (14:00)
[2019-08-15] MEDS: IRON SUCROSE COMPLEX 300 MG in SODIUM CHLORIDE 0.9% 250 ML IV SCH (15:00)
--- NOTE | 2019-08-15 17:07 | NUR ---
U/S GD LIVER MASS BX PROCEDURE PERFORMED BY DR Ovi SALDAÑA. PUNCTURE SITE RUQ AND PATIENT TOLERATED PROCEDURE WELL. SPECIMEN X 3 COLLECTED AND SENT TO LAB. END OF PROCEDURE AT 1700. FLOSEAL INJECTED TO BX SITE. BIOPSY NEEDLE REMOVED AND DRESSING APPLIED. NO BLEEDING NOTED. REPORT GIVEN TO Ludivina LEDESMA RN AND PATIENT TRANSPORTED TO [facility] VIA BED AT 1710. AAO X3 WITH NO C/O PAIN.
[2019-08-15] MEDS: PANTOPRAZOLE SODIUM 40 MG TABLET.DR PO SCH (20:20)
[2019-08-16 03:53] VITALS: BP 93/68
[2019-08-16 07:00] VITALS: BP 90/59
[2019-08-16] MEDS: FUROSEMIDE 10 MG/ML 4ML VIAL IV SCH (08:18)
[2019-08-16] MEDS: PANTOPRAZOLE SODIUM 40 MG TABLET.DR PO SCH (10:26)
[2019-08-16 11:00] VITALS: BP 94/60
[2019-08-16 15:00] VITALS: BP 95/64
[2019-08-16] MEDS: IRON SUCROSE COMPLEX 300 MG in SODIUM CHLORIDE 0.9% 250 ML IV SCH (15:03)
== END 2019-08-16 18:42 | disposition home or self-care (01) | DRG 374 ==
LOC: EDH 16:38 → EDHIP 16:39 → 2DH 22:41
PROVIDERS: ADMIT Family Medicine; ATTEND Family Medicine
PROC: 0DB68ZX Excision of Stomach, Via Natural or Artificial Opening Endoscopic, Diagnostic (ICD-10-PCS; principal; 2019-08-13)
PROC: 0FB03ZX Excision of Liver, Percutaneous Approach, Diagnostic (ICD-10-PCS; 2019-08-15)
DX: D49.0 Neoplasm of unspecified behavior of digestive system (principal); K29.01 Acute gastritis with bleeding; D62 Acute posthemorrhagic anemia; K92.1 Melena; R16.0 Hepatomegaly, not elsewhere classified; I11.0 Hypertensive heart disease with heart failure; E11.9 Type 2 diabetes mellitus without complications; E78.5 Hyperlipidemia, unspecified; I50.9 Heart failure, unspecified; K21.0 Gastro-esophageal reflux disease with esophagitis; K76.9 Liver disease, unspecified; I25.10 Atherosclerotic heart disease of native coronary artery without angina pectoris; K74.60 Unspecified cirrhosis of liver; Z82.49 Family history of ischemic heart disease and other diseases of the circulatory system
CPT/HCPCS: 36415; 43239; 47000; 71045; 71260; 74170; 76700; 76942; 80048; 80053; 80076; 82105; 82270; 82378; 82550; 82948; 83874; 83880; 84484; 85025; 85027; 85610; 85730; 86677; 93005; 93306; A4606; C9113; G0378; J1756; J1940; J2704; J3490; J7030; Q9967

== ENCOUNTER 2019-08-18 19:16 | Inpatient (IN) | payer OTHER ==
[~2019-08-18] VITALS: Ht 165.1 cm; Wt 102.1 kg
--- NOTE | 2019-08-18 16:19 | NUR ---
DC PLAN VISITED WITH PATIENT. PATIENT LIVES WITH BROTHER. NO SERVICES OR DME'S. RECENTLY DISCHARGED CAME BACK DUE TO SOB. PLAN TO RETURN HOME ON DISCHARGE. Addendum: 08/22/19 at 1621 by SHAYLEE CUENCA RN CM Amended: Links added.
[~2019-08-18 19:16] MED LIST changes: +BUME1TAB6 PO
[2019-08-18 19:40] LABS: APPEARANCE,URINE Cloudy (CLEAR); BILIRUBIN,URINE Small (NEGATIVE); COLOR,URINE Dark Yellow (YELLOW); GLUCOSE, URINE (UA) Negative (NEGATIVE); KETONES,URINE Trace mg/dL (NEGATIVE); LEUKOCYTE ESTERASE ,URINE Moderate (NEGATIVE); NITRATE,URINE Negative (NEGATIVE); OCCULT BLOOD,URINE Moderate (NEGATIVE); PROTEIN,URINE POS 1+ mg/dL (NEGATIVE)
[2019-08-18 19:52] LABS: BACTERIA,URINE Few /HPF (None Seen); SQUAMOUS EPITHELIAL CELL,UR Few /HPF (0-2)
[2019-08-18 19:53] LABS: MUCUS,URINE Rare LPF (None Seen)
[2019-08-18 20:14] LABS: BASOPHILS % (AUTO) 1.3 % (0.0-5.0); EOSINOPHILS % (AUTO) 0.9 % (0.0-8.0); HEMATOCRIT 24.4 % (42-54); LYMPHOCYTES % (AUTO) 2.6 % (21.0-51.0); MEAN CORPUSCULAR HEMOGLOBIN 28.3 pg (27.0-33.0); MEAN CORPUSCULAR VOLUME 85.7 fL (79-99); MONOCYTES % (AUTO) 3.3 % (3.0-13.0); NEUTROPHILS % (AUTO) 91.9 % (40.0-77.0); PLATELET COUNT (AUTO) 224 K/uL (130-400); RED BLOOD CELL COUNT(AUTO) 2.85 MIL/uL (4.50-6.20); WHITE BLOOD COUNT (AUTO) 14.7 K/uL (4.8-10.8)
[2019-08-18 20:28] LABS: INR 1.09 (0.85-1.15); PARTIAL THROMBOPLASTIN TIME 30.1 SEC (26.3-35.5); PROTHROMBIN TIME 11.4 SEC (9.6-11.6)
[2019-08-18 20:34] LABS: CARBON DIOXIDE 25 mmol/L (21-32); CHLORIDE 97 mmol/L (101-111); CREATININE 2.5 mg/dL (0.5-1.5); GLOMERULAR FILTR. RATE CALC 29 mL/min (>60); GLUCOSE,RANDOM 94 mg/dL (70-105); POTASSIUM 4.3 mmol/L (3.5-5.1); SODIUM SERUM 136 mmol/L (136-145); UREA NITROGEN, BLOOD 63 mg/dL (7-18)
[2019-08-18 20:44] LABS: ALANINE AMINOTRANSFERASE 15 U/L (12-78); ALBUMIN 2.3 g/dL (3.5-5.0); ASPARTATE AMINOTRANSFERASE 89 U/L (10-37); BILIRUBIN,TOTAL 0.8 mg/dL (0.2-1.0); CREATINE KINASE, TOTAL 44 U/L (21-232); MYOGLOBIN 71 ng/mL (10-92); TOTAL PROTEIN, SERUM 6.6 g/dL (6.0-8.3); TROPONIN I < 0.04 ng/mL (0.00-0.06)
[2019-08-18 20:48] LABS: B-TYPE NATRIURETIC PEPTIDE 1330 pg/mL (0-100)
[2019-08-18] MEDS ORDERED: CEFTRIAXONE SODIUM 1 GM ONE (20:57)
[2019-08-18] MEDS ORDERED: FUROSEMIDE 10 MG/ML 4ML VIAL ONE (20:57)
--- NOTE | 2019-08-18 22:20 | NUR ---
PT ARRIVED FROM ER. REPORT RECEIVED FROM SHENG HARKINS. PT ACCOMPANIED BY BROTHER. STABLE. MINIMAL PAIN STATED TO ABD AREA. STATED WAS EXPERIENCING GBW AND INCREASED ABD PAIN. NO DISTRESS NOTED. AMBULATORY. AA03. PERRLA. WEARING GLASSES. MEDICATIONS AT BEDSIDE.
[2019-08-18] MEDS ORDERED: POTASSIUM CHLORIDE 20MEQ/100ML 100 ML IV PRN (22:30)
[2019-08-18] MEDS ORDERED: CLONIDINE HCL 0.1 MG TABLET PO PRN (22:30)
[2019-08-18] MEDS ORDERED: LIDOCAINE HCL-MPF 1% 2ML VIAL IJ PRN (22:30)
[2019-08-18] MEDS ORDERED: DEXTROSE 50%-WATER 50 ML DISP.SYRIN IV PRN (22:30)
[2019-08-18] MEDS ORDERED: GLUCAGON 1MG KIT 1 MG ML IM PRN (22:30)
[2019-08-18] MEDS ORDERED: POTASSIUM CHLORIDE 20 MEQ ERTAB PO PRN (22:30)
[2019-08-18] MEDS ORDERED: LACTULOSE 20 GM/30 ML UDCUP PO PRN (22:30)
[2019-08-18] MEDS ORDERED: GUAIFENESIN-DM 200/20 MG 10 ML PO PRN (22:30)
[2019-08-18] MEDS ORDERED: ACETAMINOPHEN 325 MG TAB PO PRN (22:30)
[2019-08-18] MEDS ORDERED: NITROGLYCERIN 0.4 MG SL TAB SL PRN (22:30)
[2019-08-18] MEDS ORDERED: POTASSIUM CHLORIDE 10% ELIXIR 20 MEQ/15 ML UDCUP PO PRN (22:30)
[2019-08-18 22:36] VITALS: BP 82/51
[2019-08-18] MEDS: CEFTRIAXONE SODIUM 1 GM IVP SCH (22:59)
[2019-08-18] MEDS: IPRATROPIUM/ALBUTEROL SULFATE 3 ML SOLUTION IH SCH (23:05)
[2019-08-18 23:30] VITALS: BP 84/56
[2019-08-19] MEDS: ACETAMINOPHEN 325 MG TAB PO PRN ×2 (01:19→05:20)
--- NOTE | 2019-08-19 01:30 | NUR ---
C/O PAIN TO LOWER BACK AREA. TYLENOL PRN GIVEN.
[2019-08-19 03:58] LABS: HEMATOCRIT 23.4 % (42-54); MEAN CORPUSCULAR VOLUME 84.8 fL (79-99); PLATELET COUNT (AUTO) 230 K/uL (130-400); RED BLOOD CELL COUNT(AUTO) 2.76 MIL/uL (4.50-6.20); RED CELL DISTRIBUTION WIDTH 18.4 % (11.0-15.5); WHITE BLOOD COUNT (AUTO) 13.7 K/uL (4.8-10.8)
[2019-08-19 04:13] LABS: B-TYPE NATRIURETIC PEPTIDE 932 pg/mL (0-100)
[2019-08-19 04:41] LABS: ALBUMIN 2.2 g/dL (3.5-5.0); CREATININE 2.9 mg/dL (0.5-1.5); POTASSIUM 4.6 mmol/L (3.5-5.1)
[2019-08-19 04:54] VITALS: BP 88/45
[2019-08-19 04:54] LABS: BILIRUBIN,TOTAL 0.7 mg/dL (0.2-1.0); TOTAL PROTEIN, SERUM 6.6 g/dL (6.0-8.3)
[2019-08-19] MEDS: IPRATROPIUM/ALBUTEROL SULFATE 3 ML SOLUTION IH SCH ×4 (05:02→23:27)
[2019-08-19] MEDS ORDERED: OLME1TAB7 PO (05:12)
[2019-08-19] MEDS ORDERED: DOCU-116 PO (05:12)
[2019-08-19] MEDS ORDERED: DIATR MEGLU/DIATRIZOATE SODIUM 30 ML BOTTLE ONE (07:33)
[2019-08-19 08:12] VITALS: BP 80/43
[2019-08-19] MEDS ORDERED: FAMOTIDINE 40 MG/5 ML PO SCH (09:00)
[2019-08-19] MEDS ORDERED: COMPOUND IV MISC 1 EACH IVSOLN MISC PRN (09:15)
--- NOTE | 2019-08-19 10:33 | NUR ---
RECEIVED CALL FROM DR. Josue SHERMAN. STATES WILL BE IN TO SEE PT. LATER TODAY.
[2019-08-19] MEDS ORDERED: PANTOPRAZOLE 40 MG/VIAL IV SCH (11:30)
[2019-08-19] MEDS: ALBUMIN (HUMAN) 25% 100 ML IV SCH ×3 (11:31→20:54)
[2019-08-19] MEDS: MIDODRINE HCL 5 MG TABLET PO SCH ×3 (11:34→20:48)
[2019-08-19] MEDS: LACTULOSE 20 GM/30 ML UDCUP PO SCH ×2 (11:34→20:48)
[2019-08-19] MEDS: IRON SUCROSE COMPLEX 100 MG in SODIUM CHLORIDE 0.9% 50 ML IV SCH (11:39)
[2019-08-19 12:02] VITALS: BP 86/55
--- NOTE | 2019-08-19 12:14 | NUR ---
RECEIVED CALL FROM DR. Julissa VORA; INFORMED OF CONSULT AND PT. WITH HEMATEMESIS. DR. VROA VERBALIZED UNDERSTANDING AND STATES PT. NEEDS RADIOLOGY PROCEDURE TO CORRECT THE PROBLEM.
--- NOTE | 2019-08-19 12:30 | NUR ---
DR. UNDERWOOD, AT NURSE'S STATION, INFORMED RE:DR. Julissa VORA INFORMED OF CONSULT AND STATEMENT RE:NEED TO FOR RADIOLOGY PROCEDURE TO CORRECT HEMATEMESIS PROBLEM, VERBALIZED UNDERSTANDING.
[2019-08-19 15:31] VITALS: BP 75/52
[2019-08-19 17:05] VITALS: BP 93/56
[2019-08-19] MEDS: ONDANSETRON HCL 4 MG/2 ML VIAL IVP PRN ×2 (17:31→22:43)
--- NOTE | 2019-08-19 19:35 | NUR ---
ASSESSMENT PATIENT WAS REPOSITIONED IN BED. ALERT AND ORIENTED X3. NO COMPLAINTS OF PAIN AT THIS TIME. NO SIGNS OF DISTRESS. NO SHORTNESS OF BREATH. CALL LIGHT WITHIN REACH. BEDSIDE TABLE WITHIN REACH. NO QUESTIONS, CONCERNS, OR NEEDS VOICED AT THIS TIME. REINFORCED TO USE CALL LIGHT FOR ANY NEEDS.
[2019-08-19 20:04] VITALS: BP 77/45
[2019-08-19] MEDS: CEFTRIAXONE SODIUM 1 GM IVP SCH (20:48)
[2019-08-19] MEDS ORDERED: PANTOPRAZOLE 40 MG/VIAL IVP SCH (21:00)
--- NOTE | 2019-08-19 21:40 | NUR ---
HYPOTENSION BP 74/46 PATIENT CONTINUES WITH BLOODY EMESIS. PATIENT STATES FEELS DIZZY AND IS DIAPHORETIC WITH A COLD SWEAT. PATIENT IS UNABLE TO TOLERATE ANYTHING PO. ORDERS RECEIVED TO TRANSFER TO ICU. ORDERS FOR BLOOD TRANSFUSION PLACED. REPORT GIVEN TO SWEETIE HARKINS. ALL QUESTIONS ANSWERED AT THIS TIME.
[2019-08-19] MEDS ORDERED: SODIUM CHLORIDE 0.9% 1,000 ML IV SCH (21:45)
[2019-08-19] MEDS ORDERED: SODIUM CHLORIDE 0.9% 500ML 500 ML IV ONE (21:54)
[2019-08-19 22:32] LABS: HEMATOCRIT 14.2 % (42-54)
[2019-08-19] MEDS ORDERED: SODIUM CHLORIDE 0.9% 500ML 500 ML IV STA (22:40)
[2019-08-19] MEDS ORDERED: FUROSEMIDE 10 MG/ML 2ML VIAL IVP SCH (23:00)
[2019-08-20] VITALS (36 sets, daily range): BP systolic 86–118; BP diastolic 36–80
--- NOTE | 2019-08-20 00:08 | NUR ---
Received patient from room 227 into 206 at 2210. Patient had a black stool upon arrival, diaphoretic and lethargic. Patient was, however, alert and oriented x3 and was able to obtain blood transfusion consent. Patient complaining of nausea but no emesis at this time. Blood transfusing and blood pressure stabilizing.
[2019-08-20] MEDS ORDERED: PHARMACY COMMUNICATION MISC SCH (00:30)
[2019-08-20] MEDS: PANTOPRAZOLE SODIUM 80 MG in SODIUM CHLORIDE 0.9% 100 ML IV SCH (01:48)
[2019-08-20 05:31] LABS: BASOPHILS % (AUTO) 0.2 % (0.0-5.0); EOSINOPHILS % (AUTO) 0.2 % (0.0-8.0); LYMPHOCYTES % (AUTO) 3.8 % (21.0-51.0); MEAN CORPUSCULAR HGB CONC 33.6 g/dL (32.0-36.0); MEAN CORPUSCULAR VOLUME 89.2 fL (79-99); MONOCYTES % (AUTO) 5.2 % (3.0-13.0); NEUTROPHILS % (AUTO) 90.6 % (40.0-77.0); PLATELET COUNT (AUTO) 153 K/uL (130-400); RED BLOOD CELL COUNT(AUTO) 2.08 MIL/uL (4.50-6.20); RED CELL DISTRIBUTION WIDTH 16.7 % (11.0-15.5); WHITE BLOOD COUNT (AUTO) 12.2 K/uL (4.8-10.8)
[2019-08-20 05:34] LABS: HEMATOCRIT 18.5 % (42-54)
[2019-08-20 05:51] LABS: CREATININE 3.6 mg/dL (0.5-1.5); PHOSPHORUS 7.2 mg/dL (2.5-4.9)
[2019-08-20 05:57] LABS: INR 1.15 (0.85-1.15); PARTIAL THROMBOPLASTIN TIME 35.7 SEC (26.3-35.5)
[2019-08-20] MEDS: IPRATROPIUM/ALBUTEROL SULFATE 3 ML SOLUTION IH SCH ×4 (06:08→23:30)
--- NOTE | 2019-08-20 08:00 | NUR ---
TRANSFUSION TRANSFUSING 2ND UNIT PRBC ORDERED, TOLERATING WELL, NO ADVERSE REACTION NOTED. CONTINUES WITH SMALL DARK TARRY STOOLS.
[2019-08-20] MEDS: MIDODRINE HCL 5 MG TABLET PO SCH ×3 (08:02→20:37)
[2019-08-20] MEDS: LACTULOSE 20 GM/30 ML UDCUP PO SCH ×2 (08:02→20:15)
[2019-08-20] MEDS: IRON SUCROSE COMPLEX 100 MG in SODIUM CHLORIDE 0.9% 50 ML IV SCH (09:19)
[2019-08-20 10:36] LABS: HEMATOCRIT 22.4 % (42-54)
--- NOTE | 2019-08-20 11:30 | NUR ---
BLEEDING SCAN PT TAKEN TO BLEEDING SCAN. TOLERATED WELL.
--- NOTE | 2019-08-20 12:00 | NUR ---
DR. KJ UNDERWOOD AT BEDSIDE, PLAN OF CARE DISCUSSED WITH MD, NEW ORDERS RECEIVED AND NOTED. DR. UNDERWOOD SPOKE TO DR. SALDAÑA AND DR. VORA REGARDING CASE AND PLAN OF CARE.
--- NOTE | 2019-08-20 13:00 | NUR ---
TRANSFUSION TRANSFUSING 1 UNIT PRBC FOR HGB OF 7.6, TOLERATING WELL.
[2019-08-20] MEDS: OCTREOTIDE ACETATE 500 MCG in SODIUM CHLORIDE 0.9% 97.5 ML IV PRN ×2 (14:16→20:52)
--- NOTE | 2019-08-20 14:47 | NUR ---
Nutrition Intervention: Nutrition consult due to Liver disease. 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 Pt. NPO. Labs reviewed(Alb 2.2, BUN 97, Creat 3.6, GFR 19, BG 89, PHOS 7.2, AST 89, Alk Phos 289, Ammonia 38). Pt. with severe visceral protein depletion. Protein supplementation contraindicated due to elevated renal and ammonia labs. LBM: 08/18/19, loose. SR-21, jaundice. Pt. with 2+ edema to BLE. BMI: 32.9, Obesity Grade 1. Pt. 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 Recommendations: 1) When medically feasible, rec. advance diet as tolerated to Renal Non Dialysis GI Soft [place] with 1500ml Fluid Rest. 2) Rec. Phoslo 2 TID with meals due to elevated PHOS level. 3) Continue to monitor pt's nutritional status. 4) Consult RD as nutrition concerns arise. Addendum: 08/20/19 at [address] Amended: Links added.
[2019-08-20] MEDS ORDERED: LIDOCAINE HCL 2% 20ML ONE (15:38)
[2019-08-20] MEDS ORDERED: IODIXANOL 320 MG/ML 100 ML VIAL ONE ×2 (15:38→17:23)
--- NOTE | 2019-08-20 15:42 | NUR ---
CONSULT DR. JED MERRITT REGARDING CONSULT.
--- NOTE | 2019-08-20 16:00 | NUR ---
AUTOGLAZIER PT TAKEN FOR EMBOLIZATION BY AUTOGLAZIER NURSES.
[2019-08-20 17:27] LABS: HEMATOCRIT 24.3 % (42-54)
--- NOTE | 2019-08-20 20:27 | NUR ---
GRAM + COCCI IN 1 OF 2 SETS CALLED TO NURSE AT 1935, REPORTED TO CARPENTER CRADLE AND DOLLY ONCALL AT 2015. ORDERS GIVEN AND ENTERED INTO SYSTEM.
[2019-08-20] MEDS ORDERED: VANCOMYCIN PROTOCOL PER PHARMACY IV SCH (20:30)
[2019-08-20] MEDS: ZOSYN 3.375GM+NS 50ML 50 ML IV SCH (20:41)
[2019-08-20] MEDS ORDERED: COMPOUND IV REFRIGERATED 1 EACH IVSOLN MISC PRN (20:45)
[2019-08-20] MEDS: VANCOMYCIN 1.25 GM in SODIUM CHLORIDE 0.9% 250 ML IV SCH (20:54)
[2019-08-20] MEDS: ONDANSETRON HCL 4 MG/2 ML VIAL IVP PRN (22:25)
[2019-08-20 23:17] LABS: HEMATOCRIT 22.8 % (42-54)
[2019-08-20] MEDS ORDERED: SODIUM CHLORIDE 0.9% 250 ML IV ONE (23:31)
[2019-08-21] VITALS (30 sets, daily range): BP systolic 97–128; BP diastolic 43–68
[2019-08-21] MEDS: ACETAMINOPHEN 325 MG TAB PO PRN (01:50)
[2019-08-21 04:44] LABS: ALBUMIN 2.2 g/dL (3.5-5.0); CREATININE 3.9 mg/dL (0.5-1.5); PHOSPHORUS 7.2 mg/dL (2.5-4.9); POTASSIUM 5.3 mmol/L (3.5-5.1)
[2019-08-21 04:56] LABS: HEMATOCRIT 25.1 % (42-54)
[2019-08-21] MEDS: MORPHINE SULFATE 2 MG/ML 1ML SYG IVP PRN ×2 (05:01→11:39)
[2019-08-21] MEDS: IPRATROPIUM/ALBUTEROL SULFATE 3 ML SOLUTION IH SCH ×3 (06:07→18:22)
[2019-08-21] MEDS: ZOSYN 3.375GM+NS 50ML 50 ML IV SCH (08:29)
[2019-08-21] MEDS: IRON SUCROSE COMPLEX 100 MG in SODIUM CHLORIDE 0.9% 50 ML IV SCH (08:29)
[2019-08-21] MEDS: MIDODRINE HCL 5 MG TABLET PO SCH ×3 (08:29→20:26)
[2019-08-21] MEDS: LACTULOSE 20 GM/30 ML UDCUP PO SCH ×2 (08:29→20:26)
[2019-08-21 10:08] LABS: HEMATOCRIT 24.8 % (42-54)
[2019-08-21 10:10] LABS: POTASSIUM 5.4 mmol/L (3.5-5.1)
[2019-08-21] MEDS: ALBUMIN (HUMAN) 25% 100 ML IV SCH ×2 (10:42→17:39)
[2019-08-21] MEDS: SODIUM BICARB 50MEQ 50ML VIAL IVPB SCH ×2 (10:42→17:39)
[2019-08-21] MEDS ORDERED: VANCOMYCIN PROTOCOL PER PHARMACY IV SCH (13:15)
[2019-08-21] MEDS: SODIUM BICARB 8.4% 50ML SYRING 100 MEQ in DEXTROSE 5%-WATER 900 ML IV SCH (14:33)
[2019-08-21 16:26] LABS: HEMATOCRIT 24.2 % (42-54)
[2019-08-21] MEDS: PANTOPRAZOLE SODIUM 80 MG in SODIUM CHLORIDE 0.9% 100 ML IV SCH (17:28)
[2019-08-21] MEDS: CEFEPIME HCL 1 GM VIAL IVP SCH (20:26)
[2019-08-21] MEDS: VANCOMYCIN 1.25 GM in SODIUM CHLORIDE 0.9% 250 ML IV SCH (21:03)
[2019-08-21 22:00] LABS: HEMATOCRIT 21.4 % (42-54)
[2019-08-21] MEDS ORDERED: SODIUM CHLORIDE 0.9% 250 ML IV ONE (22:31)
[2019-08-22] VITALS (35 sets, daily range): BP systolic 88–118; BP diastolic 31–74
[2019-08-22] MEDS: SODIUM BICARB 50MEQ 50ML VIAL IVPB SCH ×3 (02:10→19:17)
[2019-08-22] MEDS: ALBUMIN (HUMAN) 25% 100 ML IV SCH ×3 (02:10→19:16)
[2019-08-22 03:54] LABS: HEMATOCRIT 24.2 % (42-54); MEAN CORPUSCULAR HEMOGLOBIN 30.8 pg (27.0-33.0); MEAN CORPUSCULAR HGB CONC 34.7 g/dL (32.0-36.0); MEAN CORPUSCULAR VOLUME 88.7 fL (79-99); NUCLEATED RED BLOOD CELLS 0.2 % (0.0-0.19); PLATELET COUNT (AUTO) 117 K/uL (130-400); RED BLOOD CELL COUNT(AUTO) 2.73 MIL/uL (4.50-6.20); RED CELL DISTRIBUTION WIDTH 16.6 % (11.0-15.5); WHITE BLOOD COUNT (AUTO) 9.4 K/uL (4.8-10.8)
[2019-08-22] MEDS: PANTOPRAZOLE SODIUM 80 MG in SODIUM CHLORIDE 0.9% 100 ML IV SCH ×2 (03:56→19:44)
[2019-08-22 04:11] LABS: CREATININE 4.3 mg/dL (0.5-1.5)
[2019-08-22] MEDS: ONDANSETRON HCL 4 MG/2 ML VIAL IVP PRN ×3 (05:54→23:13)
[2019-08-22] MEDS: MIDODRINE HCL 5 MG TABLET PO SCH ×3 (10:25→20:35)
[2019-08-22] MEDS: IRON SUCROSE COMPLEX 100 MG in SODIUM CHLORIDE 0.9% 50 ML IV SCH (10:26)
[2019-08-22] MEDS: SODIUM BICARB 8.4% 50ML SYRING 100 MEQ in DEXTROSE 5%-WATER 900 ML IV SCH (10:26)
[2019-08-22] MEDS: CEFEPIME HCL 1 GM VIAL IVP SCH ×2 (10:26→20:35)
[2019-08-22] MEDS ORDERED: LIDOCAINE HCL-MPF 2% 5ML VIAL ONE (13:02)
[2019-08-22] MEDS ORDERED: PROPOFOL 1000 MG/100 ML 0 ML IV ONE (13:02)
[2019-08-22] MEDS ORDERED: FENTANYL CITRATE PF 50 MCG/1 ML 2ML VIAL ONE (13:03)
[2019-08-22] MEDS ORDERED: ROCURONIUM 10MG/1ML SYR 10 MG/ML ML ONE (13:08)
[2019-08-22] MEDS ORDERED: PROPOFOL 10 MG/ML 20ML VIAL IV ONE (13:13)
[2019-08-22] MEDS ORDERED: KETAMINE 50MG/ML SYRINGE 50 MG/ML DISP.SYRIN IV ONE (13:22)
--- NOTE | 2019-08-22 16:47 | NUR ---
RD FOLLOW UP AND UPDATE Pt with metastatic liver and Gastric CA as per EMR. Recommend Altered means nutrition secondary to Liver CA/Gastric CA/ GI Bleed. RD TPN Recommendations: Clinimix E 02/02 @70mls/hr (1680mL/1193kcal/84gm Protein, GIR=1.80), 20% Intralipid (500kcal) MWF. Pt away for EGD at time of visit, Pt chart unavailable. RD recommendations to be placed in Pt chart. RN notified. Pt monitored labs: Hgb 8.4, Cl 100, BUN 119, Cr 4.3, GFR 15, BG 119, Ca 7.0, Alb 2.2. RD to continue to monitor. Addendum: 08/22/19 at [address] Amended: Links added.
[2019-08-22 17:51] LABS: HEMATOCRIT 24.3 % (42-54)
[2019-08-22] MEDS: ERYTHROMYCIN LACTOBIONATE 250 MG in SODIUM CHLORIDE 0.9% 100 ML IV SCH (19:45)
[2019-08-22] MEDS: VANCOMYCIN 1.25 GM in SODIUM CHLORIDE 0.9% 250 ML IV SCH (20:36)
[2019-08-23] VITALS (44 sets, daily range): BP systolic 79–115; BP diastolic 49–74
[2019-08-23] MEDS: ERYTHROMYCIN LACTOBIONATE 250 MG in SODIUM CHLORIDE 0.9% 100 ML IV SCH ×2 (01:44→07:47)
[2019-08-23] MEDS: ALBUMIN (HUMAN) 25% 100 ML IV SCH (01:44)
[2019-08-23] MEDS: SODIUM BICARB 50MEQ 50ML VIAL IVPB SCH ×2 (01:44→05:31)
[2019-08-23 04:07] LABS: BASOPHILS % (AUTO) 0.4 % (0.0-5.0); EOSINOPHILS % (AUTO) 0.8 % (0.0-8.0); HEMATOCRIT 21.8 % (42-54); LYMPHOCYTES % (AUTO) 4.3 % (21.0-51.0); MEAN CORPUSCULAR HEMOGLOBIN 30.1 pg (27.0-33.0); MEAN CORPUSCULAR VOLUME 88.5 fL (79-99); MONOCYTES % (AUTO) 6.2 % (3.0-13.0); NEUTROPHILS % (AUTO) 88.3 % (40.0-77.0); NUCLEATED RED BLOOD CELLS 0.6 % (0.0-0.19); PLATELET COUNT (AUTO) 124 K/uL (130-400); RED BLOOD CELL COUNT(AUTO) 2.46 MIL/uL (4.50-6.20); WHITE BLOOD COUNT (AUTO) 7.8 K/uL (4.8-10.8)
[2019-08-23 04:27] LABS: CREATININE 4.8 mg/dL (0.5-1.5); MAGNESIUM 2.1 mg/dL (1.80-2.40); PHOSPHORUS 6.7 mg/dL (2.5-4.9); POTASSIUM 4.7 mmol/L (3.5-5.1)
[2019-08-23] MEDS ORDERED: SODIUM CHLORIDE 0.9% 250 ML IV ONE (06:27)
[2019-08-23] MEDS: PANTOPRAZOLE SODIUM 80 MG in SODIUM CHLORIDE 0.9% 100 ML IV SCH ×2 (07:02→13:51)
[2019-08-23] MEDS: CEFEPIME HCL 1 GM VIAL IVP SCH ×2 (08:22→20:17)
[2019-08-23] MEDS: IRON SUCROSE COMPLEX 100 MG in SODIUM CHLORIDE 0.9% 50 ML IV SCH (08:23)
[2019-08-23] MEDS: MIDODRINE HCL 5 MG TABLET PO SCH ×3 (08:23→20:17)
[2019-08-23] MEDS: SODIUM BICARB 8.4% 50ML SYRING 100 MEQ in DEXTROSE 5%-WATER 900 ML IV SCH (12:51)
--- NOTE | 2019-08-23 13:30 | NUR ---
DR COE AT BEDSIDE, NEW ORDERS GIVEN. PER MD, EVENTUALLY THE PLAN WILL BE TO START PATIENT ON CHEMO WHEN DISCHARGED OR TRANSFERRED TO [facility]
[2019-08-23] MEDS: DESMOPRESSIN ACETATE 4 MCG/ML 20 MCG in SODIUM CHLORIDE 0.9% 50 ML IJ SCH (14:46)
[2019-08-23] MEDS ORDERED: M.V.I. IV [ADULT] 10 ML in CLINIMIX E 5%-15% 2,000 ML IV SCH (20:00)
[2019-08-23] MEDS: VANCOMYCIN 1.25 GM in SODIUM CHLORIDE 0.9% 250 ML IV SCH (21:00)
[2019-08-24] VITALS (19 sets, daily range): BP systolic 91–150; BP diastolic 48–80
[2019-08-24] MEDS: PANTOPRAZOLE SODIUM 80 MG in SODIUM CHLORIDE 0.9% 100 ML IV SCH (01:52)
[2019-08-24 04:54] LABS: HEMATOCRIT 21.8 % (42-54); MEAN CORPUSCULAR HGB CONC 33.7 g/dL (32.0-36.0); MEAN CORPUSCULAR VOLUME 89.2 fL (79-99); NUCLEATED RED BLOOD CELLS 0.8 % (0.0-0.19); PLATELET COUNT (AUTO) 151 K/uL (130-400); RED BLOOD CELL COUNT(AUTO) 2.44 MIL/uL (4.50-6.20); RED CELL DISTRIBUTION WIDTH 17.4 % (11.0-15.5); WHITE BLOOD COUNT (AUTO) 8.3 K/uL (4.8-10.8)
[2019-08-24 05:25] LABS: ALBUMIN 2.8 g/dL (3.5-5.0); BILIRUBIN,TOTAL 1.3 mg/dL (0.2-1.0); CREATININE 5.5 mg/dL (0.5-1.5); MAGNESIUM 2.1 mg/dL (1.80-2.40); PHOSPHORUS 6.5 mg/dL (2.5-4.9); POTASSIUM 4.4 mmol/L (3.5-5.1); TOTAL PROTEIN, SERUM 6.1 g/dL (6.0-8.3)
[2019-08-24] MEDS: MORPHINE SULFATE 2 MG/ML 1ML SYG IVP PRN ×3 (06:44→23:04)
--- NOTE | 2019-08-24 08:53 | NUR ---
AM Meds Pending. Pharmacy called and made aware of inability to remove intralipid, NAHC03 drip, and desmopressin. Pharmacist stated he will bring all bags to me once pharmacy makes them. Pending Pharmacy to bring medications at this time.
[2019-08-24] MEDS: SODIUM BICARB 8.4% 50ML SYRING 100 MEQ in DEXTROSE 5%-WATER 900 ML IV SCH ×2 (09:09→21:34)
[2019-08-24] MEDS: DESMOPRESSIN ACETATE 4 MCG/ML 20 MCG in SODIUM CHLORIDE 0.9% 50 ML IJ SCH (09:09)
[2019-08-24] MEDS: CEFEPIME HCL 1 GM VIAL IVP SCH ×2 (09:11→21:33)
[2019-08-24] MEDS: IRON SUCROSE COMPLEX 100 MG in SODIUM CHLORIDE 0.9% 50 ML IV SCH (09:12)
[2019-08-24] MEDS: MIDODRINE HCL 5 MG TABLET PO SCH ×3 (09:12→21:33)
[2019-08-24] MEDS ORDERED: FAT EMULSIONS 20% 250ML 250 ML IV SCH (10:00)
--- NOTE | 2019-08-24 16:10 | NUR ---
RECEIVED TRANSFER TO ROOM 205 VIA RECLINER ACCOMPANIED BY TORIN STARR. PT. ASSISTED TO BED FROM RECLINER PER HIS REQUEST. PICC IN PLACE, 2 PORTS PATENT. ABD LARGE, ROUND DISTENDED, HYPOACTIVE BOWELS SOUNDS. DENIES ANY CURRENT SOB, DENIES ANY CURRENT PAIN. CALL LIGHT WITHIN REACH, VERBALIZED ABILITY TO USE. BED LOW, SIDE RAILS UP X2. FAMILY MEMBERS AT BEDSIDE.
--- NOTE | 2019-08-24 16:30 | NUR ---
Oncology Plan Inquiry Dr. Jones Paged. Inquired as to which direction they were gonna go: Chemo vs Hospice. Stated to page Dr. Hardwick in regards to biopsy results and to go from there. Relayed message to Rao HARKINS. Pending follow up at this time.
--- NOTE | 2019-08-24 16:46 | NUR ---
RD UPDATE Recommend to decrease TPN Rate to 60mls/hr (1440ml/72gm protein). Worsening renal labs (BUN 134, Cr 5.5, GFR 12). Pt not candidate for Surgical nor dialysis intervention, as per RN. Possible Hospice. RD to continue to monitor. Please notify RD as additional nutritional concerns arise. Thank you.
--- NOTE | 2019-08-24 18:25 | NUR ---
REPORT TO TORIN CUADRA. PT. TRANSFERRED TO ROOM 329 VIA BED WITH BELONGINGS ACCOMPANIED BY THIS NURSE AND TRIP MART. AAOX3, RESP.'S EVEN AND UNLABORED. DENIES ANY C/O AT THIS TIME.
[2019-08-24] MEDS ORDERED: M.V.I. IV [ADULT] 10 ML in CLINIMIX E 5%-15% 2,000 ML IV SCH (20:00)
--- NOTE | 2019-08-24 20:42 | NUR ---
spoke with kellie from PHARMACY, INFORMED VANCO TROUGH 25.6 KELLIE SAID TO HOLD VANCOMYCIN FOR TONIGHT AND IN 48 HOUR, ADVISED TO HAVE VANCO TROUGH ON 08/27/2019 05:00 AM.
[2019-08-24] MEDS: VANCOMYCIN 1.25 GM in SODIUM CHLORIDE 0.9% 250 ML IV SCH (21:00)
[2019-08-24] MEDS ORDERED: PANTOPRAZOLE 40 MG/VIAL IVP SCH (21:00)
--- NOTE | 2019-08-24 21:30 | NUR ---
protonix follow up with pharmacy, informed staff from pharmacy that no protonix found in the [facility] both 3rd and 4th floor for this patient, staff from pharmacy said he will send some.however 22:00 protonix has not been received yet in the floor, attempted to call again the pharmacy but no one is answering.
[2019-08-25] VITALS: BP 99/62
[2019-08-25 04:00] VITALS: BP 106/74
--- NOTE | 2019-08-25 05:00 | NUR ---
went to PATIENT ROOM, THE PICC LINE HAS BEEN OUT. PATIENT WAS AWAKE. ASKED THE PATIENT WHAT HAPPENED TO HIS PICC LINE. HE SAID HE DID NOT KNOW, HE JUST WOKE UP AND THE LINE WAS ALREADY OUT. PATIENT IS ALERT ORIENTED TO SELF, TIME, SITUATION. DRESSING APPLIED TO SITE, NO BLEEDING NOTED. SPOKE WITH CATERINA SHOE LINING FITTER FOR BENCHMARK, HE ORDERED PICC LINE INSERTION, SECURED CONSENT IN THE MORNING. INFORMED IN COMING NURSE VENECIA IN THE MORNING
--- NOTE | 2019-08-25 06:00 | NUR ---
BLOOD IN THE STOOL PATIENT HAD EPISODE OF BLOOD IN THE STOOL. PATIENT DENIED ANY ABDOMINAL PAIN NOR ANY COMPLAINTS OF PAIN AT THIS POINT, INFORMED NURSE VENECIA AND WHO MADE ROUNDS IN THE MORNING. PT DENIED ANY CHEST PAIN NOR DYSPNEA.
[2019-08-25 07:58] VITALS: BP 96/65
[2019-08-25] MEDS ORDERED: PHARMACY COMMUNICATION MISC SCH (08:15)
[2019-08-25] MEDS ORDERED: PANTOPRAZOLE SODIUM 80 MG in NS 100ML IVP SCH (08:15)
[2019-08-25] MEDS ORDERED: OCTREOTIDE ACETATE 500 MCG in SODIUM CHLORIDE 0.9% 97.5 ML IV PRN (08:15)
[2019-08-25] MEDS ORDERED: PANTOPRAZOLE 40 MG/VIAL IVP SCH (08:30)
[2019-08-25] MEDS: CEFEPIME HCL 1 GM VIAL IVP SCH (08:48)
[2019-08-25] MEDS: MIDODRINE HCL 5 MG TABLET PO SCH ×2 (08:48→13:49)
[2019-08-25 08:51] LABS: POTASSIUM 4.2 mmol/L (3.5-5.1)
[2019-08-25 08:52] LABS: CREATININE 5.5 mg/dL (0.5-1.5)
[2019-08-25 08:57] LABS: INR 1.09 (0.85-1.15); PROTHROMBIN TIME 11.4 SEC (9.6-11.6)
[2019-08-25 09:07] LABS: HEMATOCRIT 21.7 % (42-54); MEAN CORPUSCULAR HEMOGLOBIN 29.8 pg (27.0-33.0); MEAN CORPUSCULAR VOLUME 90.3 fL (79-99); NUCLEATED RED BLOOD CELLS 0.6 % (0.0-0.19); PLATELET COUNT (AUTO) 217 K/uL (130-400); RED CELL DISTRIBUTION WIDTH 17.5 % (11.0-15.5); WHITE BLOOD COUNT (AUTO) 12.9 K/uL (4.8-10.8)
[2019-08-25] MEDS: IRON SUCROSE COMPLEX 100 MG in SODIUM CHLORIDE 0.9% 50 ML IV SCH (10:26)
[2019-08-25 11:31] VITALS: BP 93/64
[2019-08-25] MEDS: ONDANSETRON HCL 4 MG/2 ML VIAL IVP PRN (13:49)
[2019-08-25] MEDS: MORPHINE SULFATE 2 MG/ML 1ML SYG IVP PRN (13:50)
--- NOTE | 2019-08-25 13:52 | NUR ---
DCP: [facility] met with pt and sister April Reddy. Educated on [facility] and hospice homes. Sister Katheryn Villegas is willing to take pt home and care for him with hospice. Explained that if level of care is too much, [facility] has bed and that can be the plan B. Discussed directives. Pt agreeable to signing MPOA and OOHDNR. MPOA and OOHDNR signed. [facility]. [facility] came to see pt and has accepted. DME is ordered and dcp pending delivery. CM aware and is arranging transport home when ready. Tyrone took OOHDNR for their medical review coordinator to sign. Nurse Meyer AWARE OF DCP.
--- NOTE | 2019-08-25 14:00 | NUR ---
CM Note: EMS suyapa arranged CM arranged and faxed EMS, as per Jocelynn DIAS Director approved for transport w/[facility], hospital will cover charge. [facility] aware. Primary nurse to call [facility] once pt equipments delivered and MD clear. Primary nurse aware. CM to cont to follow up.
[2019-08-25 15:55] VITALS: BP 95/61
--- NOTE | 2019-08-25 18:45 | NUR ---
INSTRUCTIONS DISCHARGE INSTRUCTIONS GIVEN TO PATIENT USING TEACH BACK. ALL INTRAVENOUS ACCESSES HAVE BEEN REMOVED. REPORT HAS BEEN CALLED TO [facility], REPORT GIVEN TO TORIN TATUM. EMS HAS BEEN NOTIFIED OF PENDING TRANSFER HOME. NO QUESTIONS OR CONCERNS VOICED.
--- NOTE | 2019-08-25 21:05 | NUR ---
DISCHARGE-EMS here to transfer home, patient AAOx3, denies discomfort, no acute distress noted. Family members at bedside. Discharge instructions were given earlier by day shift nurse.
[2019-08-27] MEDS ORDERED: VANCOMYCIN 1GM+NS 250ML IV SCH (13:00)
== END 2019-08-25 21:04 | disposition hospice, inpatient (51) | DRG 871 ==
LOC: EDH 19:16 → EDHIP 19:17 → OBSVTOIN 19:17 → 2DH 22:02 → 2BH 08-19 21:49 → 2AH 08-24 16:03 → 3AH 08-24 18:25
PROVIDERS: ADMIT Internal Medicine Critical Care Medicine; ATTEND Internal Medicine Critical Care Medicine
PROC: 30233N1 Transfusion of Nonautologous Red Blood Cells into Peripheral Vein, Percutaneous Approach (ICD-10-PCS; 2019-08-19)
PROC: B41F1ZZ Fluoroscopy of Right Lower Extremity Arteries using Low Osmolar Contrast (ICD-10-PCS; principal; 2019-08-20)
PROC: B4131ZZ Fluoroscopy of Splenic Arteries using Low Osmolar Contrast (ICD-10-PCS; 2019-08-20)
PROC: B31N1ZZ Fluoroscopy of Other Upper Arteries using Low Osmolar Contrast (ICD-10-PCS; 2019-08-20)
PROC: 30233K1 Transfusion of Nonautologous Frozen Plasma into Peripheral Vein, Percutaneous Approach (ICD-10-PCS; 2019-08-23)
DX: A41.9 Sepsis, unspecified organism (principal); I50.43 Acute on chronic combined systolic (congestive) and diastolic (congestive) heart failure; N17.0 Acute kidney failure with tubular necrosis; E43 Unspecified severe protein-calorie malnutrition; K29.01 Acute gastritis with bleeding; R57.1 Hypovolemic shock; R65.21 Severe sepsis with septic shock; N39.0 Urinary tract infection, site not specified; D62 Acute posthemorrhagic anemia; C16.9 Malignant neoplasm of stomach, unspecified; C78.7 Secondary malignant neoplasm of liver and intrahepatic bile duct; I13.0 Hypertensive heart and chronic kidney disease with heart failure and stage 1 through stage 4 chronic kidney disease, or unspecified chronic kidney disease; C78.00 Secondary malignant neoplasm of unspecified lung; C78.1 Secondary malignant neoplasm of mediastinum; I34.0 Nonrheumatic mitral (valve) insufficiency; K74.60 Unspecified cirrhosis of liver; N18.9 Chronic kidney disease, unspecified; E11.22 Type 2 diabetes mellitus with diabetic chronic kidney disease; E78.5 Hyperlipidemia, unspecified; E87.5 Hyperkalemia; Z68.37 Body mass index [BMI] 37.0-37.9, adult; Z82.49 Family history of ischemic heart disease and other diseases of the circulatory system; E66.9 Obesity, unspecified; K20.9 Esophagitis, unspecified; Z66 Do not resuscitate; Z79.82 Long term (current) use of aspirin
CPT/HCPCS: 36246; 36415; 36430; 43235; 71045; 71250; 74176; 75726; 75774; 78278; 80048; 80053; 80069; 80202; 81001; 82140; 82550; 82565; 82948; 83605; 83690; 83735; 83874; 83880; 84100; 84132; 84145; 84484; 84520; 85014; 85018; 85025; 85027; 85060; 85610; 85730; 86850; 86900; 86901; 86922; 86927; 87040; 87077; 87088; 87186; 87804; 93005; 94640; 94664; 97039; A4357; A9512; C1751; C1760; C1769; C1894; C9113; G0378; J0692; J0696; J1364; J1644; J1756; J1940; J2354; J2405; J2543; J2597; J2704; J3010; J3370; J3490; J7030; J7040; J7070; P9016; P9017; P9046; Q9963; Q9967